=== PATIENT | male | born 1995 ===

== ENCOUNTER 2021-05-24 12:01 | Emergency (ER) | payer OTHER ==
[~2021-05-24] VITALS: Ht 172.7 cm; Wt 63.5 kg
[2021-05-24] MEDS ORDERED: AMOX500 PO (12:33)
== END 2021-05-24 12:45 | disposition home or self-care (01) ==
LOC: ER 12:01
DX: K04.7 Periapical abscess without sinus (principal)
CPT/HCPCS: 99282